=== PATIENT | female | born 1980 ===

== ENCOUNTER 2017-06-12 17:48 | Emergency (ER) | payer OTHER ==
[2017-06-12 17:49] VITALS: BMI 22.6
[2017-06-12 17:57] VITALS: BP 111/71; PULSE 87; TEMP 99.2
[2017-06-12] MEDS ORDERED: Naproxen 550 mg Tab PO STA (18:43)
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
[2017-06-12 20:23] VITALS: RESP 18; O2SAT 99
--- NOTE | 2017-06-13 07:28 | RAD ---
PROCEDURE: Radiographs of the Lumbar Spine. HISTORY: pain COMPARISON: No prior. FINDINGS: BONES: Normal alignment. No listhesis. No fracture. DISC SPACES: Unremarkable. OTHER FINDINGS: Lumbosacral transitional elements suggested L5 probably sacralized. Left hemipelvic phleboliths. Moderate stool retention IMPRESSION: Developmental variant lumbar sacral transitional elements. . No fracture or subluxation
--- NOTE | 2017-06-13 07:32 | RAD ---
PROCEDURE: Radiographs of the right tibia and fibula. HISTORY: pain COMPARISON: None available. TECHNIQUE: Frontal and lateral views obtained. FINDINGS: BONES: No fracture or destructive lesion. JOINT SPACES: Unremarkable. OTHER FINDINGS: None. IMPRESSION: Unremarkable radiographs of the right tibia and fibula.
== END 2017-06-12 20:22 | disposition home or self-care (01) ==
LOC: ED 17:48
DX: S80.11XA Contusion of right lower leg, initial encounter (principal); V43.52XA Car driver injured in collision with other type car in traffic accident, initial encounter; Y92.410 Unspecified street and highway as the place of occurrence of the external cause; M54.5 Low back pain